=== PATIENT | female | born 1980 | race African-American/Black ===

== ENCOUNTER 2019-01-16 20:47 | Emergency (ER) | payer BC ==
[~2019-01-16] VITALS: Ht 167.6 cm; Wt 94.8 kg
[2019-01-16] MEDS ORDERED: BRIM5DRO2 OP (20:55)
[2019-01-16] MEDS ORDERED: ADAL40PE SQ (20:55)
[2019-01-16 21:30] LABS: BASO # 0.1 x10^3/uL (0.0-0.2); BASO % 1 % (0-3); EOS # 0.1 x10^3/uL (0.0-0.7); EOS % 2 % (0-3); HEMATOCRIT 41.7 % (36.0-47.0); HEMOGLOBIN 14.1 g/dL (12.0-15.5); LYMPH # 4.4 x10^3/uL (1.0-4.8); LYMPH % 64 % (24-48); MEAN CORPUSCULAR HEMOGLOBIN 31 pg (25-35); MEAN CORPUSCULAR HGB CONC 34 g/dL (31-37); MEAN CORPUSCULAR VOLUME 91 fL (79-100); MONO # 0.5 x10^3/uL (0.0-1.1); MONO % 7 % (0-9); NEUT # 1.8 x10^3/uL (1.8-7.7); NEUT % 26 % (31-73); PLATELET COUNT 283 x10^3/uL (140-400); RED BLOOD COUNT 4.56 x10^6/uL (3.50-5.40); RED CELL DISTRIBUTION WIDTH 13.3 % (11.5-14.5); WHITE BLOOD COUNT 6.8 x10^3/uL (4.0-11.0)
[2019-01-16 22:07] LABS: CALCIUM 8.8 mg/dL (8.5-10.1); CREATININE 1.1 mg/dL (0.6-1.0); GFR 67.3; POTASSIUM 4.1 mmol/L (3.5-5.1)
[2019-01-16 22:08] LABS: % EOS 3 % (0-5); % LYMPHS 58 % (24-48); % MONOS 6 % (0-10); % SEGS 33 % (35-66)
[2019-01-16 22:10] LABS: ANISOCYTOSIS SLIGHT; PLT ESTIMATE ADEQUATE (ADEQUATE)
[2019-01-16 22:11] LABS: ALBUMIN 3.6 g/dL (3.4-5.0); ALBUMIN/GLOBULIN RATIO 0.9 (1.0-1.7); MAGNESIUM 1.9 mg/dL (1.8-2.4); TOTAL BILIRUBIN 0.4 mg/dL (0.2-1.0); TOTAL PROTEIN 7.8 g/dL (6.4-8.2)
[2019-01-16 23:22] LABS: BILIRUBIN,URINE NEGATIVE (NEG); CLARITY,URINE CLEAR; COLOR,URINE YELLOW; NITRITE,URINE NEGATIVE (NEG); PROTEIN,URINE NEGATIVE (NEG-TRACE)
[2019-01-16 23:29] LABS: BACTERIA,URINE FEW /HPF (0-FEW); RBC,URINE 0 /HPF (0-2); SQUAMOUS EPITHELIAL CELL,UR OCC /LPF
--- NOTE | 2019-01-16 23:30 | RAD ---
INDICATION: Syncope COMPARISON: None. TECHNIQUE: Axial CT images obtained through the head without intravenous contrast. One or more of the following individualized dose reduction techniques were utilized for this examination: 1. Automated exposure control; 2. Adjustment of the mA and/or kV according to patient size; 3. Use of iterative reconstruction technique. FINDINGS: No intracranial hemorrhage. No midline shift. Basal cisterns patent. Ventricles and sulci are unremarkable. No acute osseous abnormality. Nasal septal bowing to the right. IMPRESSION: 1. No acute intracranial hemorrhage. Electronically signed by: Shashank Jose MD (01/16/2019 11:27 PM) [facility]
--- NOTE | 2019-01-16 23:40 | PHYS DOC ---
Past Medical History Past Medical History: Other Additional Past Medical Histor: EYE PROBLEMS ON HUMIRA Past Surgical History: Other Additional Past Surgical Histo: EYE SURGURY Alcohol Use: Occasionally Drug Use: None Adult General Chief Complaint Chief Complaint: NEAR SYNCOPE HPI HPI Patient is a 38 year old female who brought in by EMS because of almost passing out. Patient states she was staying at the parking lot and talking to her friend about 45 minutes. Patient states she felt dizzy and lightheadedness and had to sit down inside of the car and then felt nauseous. Patient's friend reported that she had a syncopal episode but patient states she was hearing her but was not able to talk. Patient denies chest pain, focal neuro deficit, headache, history of the same problem, , recent dehydration. Patient complaining of mild dizziness and generalized weakness. Review of Systems Review of Systems Constitutional: Denies fever or chills [] Eyes: Denies change in visual acuity, redness, or eye pain [] HENT: Denies nasal congestion or sore throat [] Respiratory: Denies cough or shortness of breath [] Cardiovascular: No additional information not addressed in HPI [] GI: Denies abdominal pain, vomiting, bloody stools or diarrhea, reports nausea[] : Denies dysuria or hematuria [] Musculoskeletal: Denies back pain or joint pain [] Integument: Denies rash or skin lesions [] Neurologic: Denies headache, focal weakness or sensory changes [] Endocrine: Denies polyuria or polydipsia [] All other systems were reviewed and found to be within normal limits, except as documented in this note. Allergies Allergies Allergies Coded Allergies Type Severity Reaction Last Updated Verified No Known Drug Allergies 01/16/19 No Physical Exam Physical Exam Constitutional: Well developed, well nourished, mild distress, non-toxic appearance. [] HENT: Normocephalic, atraumatic, bilateral external ears normal, oropharynx moist, no oral exudates, nose normal. [] Eyes: PERRLA, EOMI, conjunctiva normal, no discharge. [] Neck: Normal range of motion, no tenderness, supple, no stridor. [] Cardiovascular: Bradycardia, no murmur [] Lungs & Thorax: Bilateral breath sounds clear to auscultation [] Abdomen: Bowel sounds normal, soft, no tenderness, no masses, no pulsatile masses. [] Skin: Warm, dry, no erythema, no rash. [] Back: No tenderness, no CVA tenderness. [] Extremities: No tenderness, no cyanosis, no clubbing, ROM intact, no edema. [] Neurologic: Alert and oriented X 3, normal motor function, normal sensory function, no focal deficits noted. [] Psychologic: Affect normal, judgement normal, mood normal. [] Current Patient Data Vital Signs Vital Signs Date Time Temp Pulse Resp B/P (MAP) Pulse Ox O2 Delivery O2 Flow Rate FiO2 01/16/19 23:13 68 20 100 01/16/19 20:47 98.5 139/88 (105) Room Air 98.5 Lab Values Laboratory Tests Test 01/16/19 21:00 01/16/19 21:45 01/16/19 23:10 White Blood Count 6.8 x10^3/uL (4.0-11.0) Red Blood Count 4.56 x10^6/uL (3.50-5.40) Hemoglobin 14.1 g/dL (12.0-15.5) Hematocrit 41.7 % (36.0-47.0) Mean Corpuscular Volume 91 fL (79-100) Mean Corpuscular Hemoglobin 31 pg (25-35) Mean Corpuscular Hemoglobin Concent 34 g/dL (31-37) Red Cell Distribution Width 13.3 % (11.5-14.5) Platelet Count 283 x10^3/uL (140-400) Neutrophils (%) (Auto) 26 % (31-73) L Lymphocytes (%) (Auto) 64 % (24-48) H Monocytes (%) (Auto) 7 % (0-9) Eosinophils (%) (Auto) 2 % (0-3) Basophils (%) (Auto) 1 % (0-3) Neutrophils # (Auto) 1.8 x10^3/uL (1.8-7.7) Lymphocytes # (Auto) 4.4 x10^3/uL (1.0-4.8) Monocytes # (Auto) 0.5 x10^3/uL (0.0-1.1) Eosinophils # (Auto) 0.1 x10^3/uL (0.0-0.7) Basophils # (Auto) 0.1 x10^3/uL (0.0-0.2) Segmented Neutrophils % 33 % (35-66) L Lymphocytes % 58 % (24-48) H Monocytes % 6 % (0-10) Eosinophils % 3 % (0-5) Platelet Estimate Adequate (ADEQUATE) Anisocytosis Slight Maternal Serum HCG Beta Subunit < 1 mIU/mL (0-5) Sodium Level 140 mmol/L (136-145) Potassium Level 4.1 mmol/L (3.5-5.1) Chloride Level 105 mmol/L (98-107) Carbon Dioxide Level 25 mmol/L (21-32) Anion Gap 10 (6-14) Blood Urea Nitrogen 9 mg/dL (7-20) Creatinine 1.1 mg/dL (0.6-1.0) H Estimated GFR (Cockcroft-Gault) 67.3 BUN/Creatinine Ratio 8 (6-20) Glucose Level 84 mg/dL (70-99) Calcium Level 8.8 mg/dL (8.5-10.1) Magnesium Level 1.9 mg/dL (1.8-2.4) Total Bilirubin 0.4 mg/dL (0.2-1.0) Aspartate Amino Transferase (AST) 19 U/L (15-37) Alanine Aminotransferase (ALT) 20 U/L (14-59) Alkaline Phosphatase 79 U/L (46-116) Creatine Kinase 231 U/L (26-192) H Creatine Kinase MB (Mass) 1.5 ng/mL (0.0-3.6) Creatine Kinase MB Relative Index 0.6 % (0-4) Troponin I Quantitative < 0.017 ng/mL (0.000-0.055) EN-Sfr-U-Type Natriuretic Peptide 11 pg/mL (0-124) Total Protein 7.8 g/dL (6.4-8.2) Albumin 3.6 g/dL (3.4-5.0) Albumin/Globulin Ratio 0.9 (1.0-1.7) L Urine Color Yellow Urine Clarity Clear Urine pH 6.0 Urine Specific Hodgen 1.020 Urine Protein Negative mg/dL (NEG-TRACE) Urine Glucose (UA) Negative mg/dL (NEG) Urine Ketones (Stick) Negative mg/dL (NEG) Urine Blood Negative (NEG) Urine Nitrite Negative (NEG) Urine Bilirubin Negative (NEG) Urine Urobilinogen Dipstick 1.0 mg/dL (0.2 mg/dL) Urine Leukocyte Esterase Trace (NEG) Urine RBC 0 /HPF (0-2) Urine WBC 1-4 /HPF (0-4) Urine Squamous Epithelial Cells Occ /LPF Urine Bacteria Few /HPF (0-FEW) Urine Mucus Slight /LPF Laboratory Tests 01/16/19 21:00 Laboratory Tests 01/16/19 21:45 EKG EKG EKG interpreted by me. EKG at 2055 showed sinus bradycardia at rate of 56, normal OH and QT interval, no acute ST and T-wave abnormalities. Radiology/Procedures Radiology/Procedures [][facility] [address] [place] [address] IMAGING REPORT Signed PATIENT: GONZALEZ CHAPPELL ACCOUNT: [id number] : 1980 LOCATION: ER AGE: 38 SEX: F EXAM STATUS: REG ER ORD. PHYSICIAN: MAR FINNEGAN MD REASON: syncope PROCEDURE: CT HEAD WO CONTRAST INDICATION: Syncope COMPARISON: None. TECHNIQUE: Axial CT images obtained through the head without intravenous contrast. One or more of the following individualized dose reduction techniques were utilized for this examination: 1. Automated exposure control; 2. Adjustment of the mA and/or kV according to patient size; 3. Use of iterative reconstruction technique. FINDINGS: No intracranial hemorrhage. No midline shift. Basal cisterns patent. Ventricles and sulci are unremarkable. No acute osseous abnormality. Nasal septal bowing to the right. IMPRESSION: 1. No acute intracranial hemorrhage. Electronically signed by: Tanna Chappell MD (01/16/2019 11:27 PM) [facility] DICTATED and SIGNED BY: TANNA CHAPPELL MD DATE: 01/16/19 3127 Course & Med Decision Making Course & Med Decision Making Pertinent Labs and Imaging studies reviewed. (See chart for details) Chest x-ray interpreted by me and did not show acute finding. Evaluation of patient in ER showed 38-year-old female patient brought in by EMS because of near syncope after standing up for 45 minutes outside. Patient had mild bradycardia that improved with rest. Patient had unremarkable physical exam and EKG and labs and CT of head except for mild elevation of CPK. Patient had negative orthostatics vital signs have been negative with IV fluid. Plan discharge patient home with diagnose of vasovagal syncope. Dragon Disclaimer Dragon Disclaimer This electronic medical record was generated, in whole or in part, using a voice recognition dictation system. Departure Departure Impression: Primary Impression: Near syncope Additional Impressions: Elevated CK Bradycardia Disposition: HOME, SELF-CARE (at 2336) Condition: IMPROVED Referrals: UNKNOWN PCP NAME (PCP) Patient Instructions: Syncope Additional Instructions: Drink plenty of liquids Follow-up with your primary care physician in 3-5 days Return to ER if not getting better Problem Qualifiers MAR FINNEGAN MD Jan 16, 2019 23:40
[2019-01-17] VITALS: BP 105/90
--- NOTE | 2019-01-17 06:58 | EKG ---
[facility] [address] [place] [address] Test Date: 2019-01-16 Test Time: 20:56:53 Pat Name: GONZALEZ CHAPPELL Department: Room: Gender: F Houseman: : 1980 Requested By: MAR FINNEGAN Order Number: [id number] Reading MD: Measurements Intervals [place] Rate: 56 P: 34 WA: 170 QRS: 57 QRSD: 80 T: 54 QT: 402 QTc: 390 Interpretive Statements SINUS RHYTHM NO SPECIFIC ECG ABNORMALITIES RI6.01 Unconfirmed report No previous ECG available for comparison
--- NOTE | 2019-01-17 09:00 | RAD ---
EXAM: PA and Lateral Views of the Chest DATE: 01/16/2019 9:22 PM INDICATION: Syncope COMPARISON: No Prior FINDINGS: The heart is not enlarged. Mediastinal and hilar contours are normal. No focal parenchymal airspace opacity. No pleural effusion or pneumothorax. IMPRESSION: 1. No radiographic evidence for acute cardiopulmonary process. Electronically signed by: James Salazar MD (01/17/2019 8:58 AM) [facility]
== END 2019-01-17 | disposition home or self-care (01) ==
LOC: ER 20:47
DX: R55 Syncope and collapse (principal); R42 Dizziness and giddiness; R00.1 Bradycardia, unspecified; R74.8 Abnormal levels of other serum enzymes; R11.0 Nausea
CPT/HCPCS: 36415; 70450; 71046; 80053; 81001; 82553; 83735; 83880; 84484; 84702; 85007; 85025; 87086; 93005; 99285